=== PATIENT | female | born 1980 ===

== ENCOUNTER → 2020-04-27 | Outpatient (CLI) | payer OTHER | END | disposition home or self-care (01) | LOC: LAB SHORT 15:00 → PLD 15:00 | DX: D48.5 Neoplasm of uncertain behavior of skin (principal); D22.39 Melanocytic nevi of other parts of face; D22.0 Melanocytic nevi of lip | CPT/HCPCS: 88305 ==

== ENCOUNTER → 2022-10-12 | Outpatient (CLI) | payer BC | END | disposition home or self-care (01) | LOC: LAB SHORT 11:32 → LAB 11:32 | PROVIDERS: Family Medicine | DX: Z12.4 Encounter for screening for malignant neoplasm of cervix (principal) | CPT/HCPCS: G0145 ==

== ENCOUNTER 2023-01-31 12:25 | Day surgery (SDC) | payer OTHER, BC ==
[~2023-01-31] VITALS: Ht 154.9 cm; Wt 79.9 kg
[2023-01-31] MEDS ORDERED: METF500 PO (13:20)
[2023-01-31 18:01] VITALS: BP 114/80
--- NOTE | 2023-01-31 19:17 | NUR ---
01/31/231916 Jia Rubio PATIENT STATED SIGNIFICANT RELEIF OF NAUSEA AFTER ANTI NAUSEA MEDICATION AT DISCHARGE. VITAL SIGNS WNL.
== END 2023-01-31 19:13 | disposition home or self-care (01) ==
LOC: ORSCSDS 12:25
PROVIDERS: Podiatrist Foot & Ankle Surgery
PROC: 0QSP04Z Reposition Left Metatarsal with Internal Fixation Device, Open Approach (ICD-10-PCS; principal; 2023-01-31 13:45)
DX: S99.192A Other physeal fracture of left metatarsal, initial encounter for closed fracture (principal); W01.0XXA Fall on same level from slipping, tripping and stumbling without subsequent striking against object, initial encounter; Z79.84 Long term (current) use of oral hypoglycemic drugs
CPT/HCPCS: C1713; J0171; J0690; J1100; J1885; J2001; J2250; J2405; J2704; J2795; J3010; J7120